=== PATIENT | female | born 1990 | race African-American/Black ===

== ENCOUNTER 2018-06-22 21:56 | Emergency (ER) | payer SELFPAY ==
[2018-06-22 23:07] LABS: Pregnancy Test - Urine (BHCG) Negative (Negative); Pregu Control Background? CLEAR/WHITE (CLR/WHITE); Pregu Control Bar Appear? YES (CONTROL BAR)
[2018-06-22 23:08] LABS: Bilirubin Negative (Negative); Blood, Urine Large (Negative); Clarity CLOUDY (Clear); Glucose, Urine (Dipstick) Negative (Negative); Leukocyte Negative (Negative); Nitrite Negative (Negative); Protein, Urine (Dipstick) Trace mg/dL (Neg-Trace); Specific Gravity, Urine 1.029 (1.002-1.036); pH, Urine 5.5 (5.0-9.0)
[2018-06-22 23:09] LABS: Specific Gravity 1.029 (1.002-1.036)
[2018-06-22 23:10] LABS: Bacteria/HPF None Seen HPF (None Seen); Hyaline Casts/LPF 0-3 HYALINE CAST LPF (0-3 Hyaline); Pathc Cast-AUWi Flag 0.72 (0-2.49); RBC/HPF GREATER THAN 50-TNTC HPF (0-3); Squamous Epithelial 0-3 HPF (0-3)
[2018-06-25 20:35] LABS: Chlamydia by PCR Not Detected (NotDetected); GC by PCR Not Detected (NotDetected)
== END 2018-06-23 00:11 | disposition home or self-care (01) ==
LOC: ERS 21:56
DX: N93.9 Abnormal uterine and vaginal bleeding, unspecified (principal); B37.3 Candidiasis of vulva and vagina
CPT/HCPCS: 81003; 81015; 81025; 87480; 87491; 87510; 87591; 87660; 99284

== ENCOUNTER 2018-12-14 23:05 | Emergency (ER) | payer OTHER, SELFPAY ==
[2018-12-14] MEDS ORDERED: Ondansetron PF 4 MG/2 ML Vial ONE (23:29)
[2018-12-14 23:59] LABS: #Basophils 0.2 thou/uL (0.0-0.2); #Eosinphils 0.1 thou/uL (0.0-0.7); #Lymphocytes 1.8 thou/uL (1.20-3.40); #Monocytes 0.4 thou/uL (0.11-0.59); %Basophils 2.4 % (0.0-1.0); %Eosinophils 1.1 % (0.0-10.0); %Lymphocytes 28.1 % (21.0-51.0); %Monocytes 6.6 % (0.0-10.0); %Neutrophils 61.9 % (42.0-75.0); Hemoglobin 13.5 g/dL (12.0-16.0); Mean Corpuscular HGB CONC 34.4 g/dL (32.0-36.0); Mean Corpuscular Hemoglobin 30.9 pg (27.0-31.0); Mean Corpuscular Volume 89.9 fL (78.0-98.0); Platelet Count 230 thou/uL (130-400); Red Blood Cell (RBC) Count 4.37 mill/uL (4.20-5.40); White Blood Cell (WBC) Count 6.4 thou/uL (4.8-10.8)
[2018-12-15 00:13] LABS: ALT (SGPT) 36 U/L (8-55); AST (SGOT) 30 U/L (5-34); Albumin 4.3 g/dL (3.5-5.0); Alkaline Phosphatase 81 U/L (40-150); Anion Gap 15 mmol/L (10-20); BUN (Urea Nitrogen) 7 mg/dL (7.0-18.7); Bilirubin, Total 0.8 mg/dL (0.2-1.2); Calc. Creatinine Clearance 0 mL/min (70-130); Carbon Dioxide 18 mmol/L (22-29); Chloride 107 mmol/L (98-107); Estimated GFR-MDRD Greater than 90; Globulin 3.4 g/dL (2.4-3.5); Glucose 122 mg/dL (70-105); Potassium 3.2 mmol/L (3.5-5.1); Protein, Total 7.7 g/dL (6.0-8.3); Sodium 137 mmol/L (136-145)
[2018-12-15 00:26] LABS: Bilirubin Negative (Negative); Blood, Urine Negative (Negative); Clarity Turbid (Clear); Glucose, Urine (Dipstick) Normal (Negative); Leukocyte 25 Leu/uL (Negative); Nitrite Negative (Negative); Protein, Urine (Dipstick) 50 mg/dL (Neg-Trace); Urobilinogen 6 mg/dL (Less than 2)
[2018-12-15 00:28] LABS: Bacteria/HPF 1+ HPF (None Seen)
== END 2018-12-15 01:30 | disposition home or self-care (01) ==
LOC: ERS 23:05
DX: O21.9 Vomiting of pregnancy, unspecified (principal); O99.281 Endocrine, nutritional and metabolic diseases complicating pregnancy, first trimester; E87.6 Hypokalemia; Z3A.12 12 weeks gestation of pregnancy
CPT/HCPCS: 80053; 81003; 81015; 85025; 96361; 96374; J2405

== ENCOUNTER 2018-12-18 13:39 | Inpatient (IN) | payer OTHER ==
[2018-12-18] MEDS ORDERED: Promethazine HCl 25 MG/ML VIAL ONE (14:47)
[2018-12-18 14:53] LABS: #Basophils 0.1 thou/uL (0.0-0.2); #Eosinphils 0.1 thou/uL (0.0-0.7); #Lymphocytes 1.6 thou/uL (1.20-3.40); #Monocytes 0.4 thou/uL (0.11-0.59); #Neutrophils 2.9 thou/uL (1.40-6.50); %Basophils 1.2 % (0.0-1.0); %Eosinophils 1.2 % (0.0-10.0); %Lymphocytes 31.6 % (21.0-51.0); Hemoglobin 14.1 g/dL (12.0-16.0); Mean Corpuscular HGB CONC 34.7 g/dL (32.0-36.0); Mean Corpuscular Hemoglobin 31.4 pg (27.0-31.0); Mean Corpuscular Volume 90.6 fL (78.0-98.0); Mean Platelet Volume 8.3 fL (7.4-10.4); Platelet Count 214 thou/uL (130-400); RBC Distribution Width 11.9 % (11.5-14.5); Red Blood Cell (RBC) Count 4.47 mill/uL (4.20-5.40)
[2018-12-18 15:10] LABS: ALT (SGPT) 67 U/L (8-55); AST (SGOT) 37 U/L (5-34); Albumin 4.5 g/dL (3.5-5.0); Alkaline Phosphatase 125 U/L (40-150); Anion Gap 19 mmol/L (10-20); BUN (Urea Nitrogen) 7 mg/dL (7.0-18.7); Calc. Creatinine Clearance 0 mL/min (70-130); Calcium 10.2 mg/dL (7.8-10.44); Carbon Dioxide 17 mmol/L (22-29); Chloride 108 mmol/L (98-107); Estimated GFR-MDRD Greater than 90; Globulin 3.2 g/dL (2.4-3.5); Glucose 72 mg/dL (70-105); Potassium 3.8 mmol/L (3.5-5.1); Protein, Total 7.7 g/dL (6.0-8.3); Sodium 140 mmol/L (136-145)
[2018-12-18 18:37] VITALS: BMI 32.4
[2018-12-18] MEDS ORDERED: Acetaminophen 500 MG TAB PO PRN (18:59)
[2018-12-18] MEDS ORDERED: Sodium Chloride 0.9% 10 ML ONE (19:49)
[2018-12-18] MEDS: Lactated Ringer's 1,000 ML IV SCH (19:59)
[2018-12-18] MEDS: Metoclopramide HCl 10 MG/2 ML VIAL IVP SCH (22:01)
[2018-12-18] MEDS: diphenhydrAMINE 50 MG/ML VIAL IM/IV SCH (22:08)
[2018-12-18] MEDS: Ondansetron PF 4 MG/2 ML Vial IVP SCH (23:57)
--- NOTE | 2018-12-19 01:26 | HP ---
CHIEF COMPLAINT: Nausea and vomiting in . HISTORY OF PRESENT ILLNESS: The patient is a 28-year-old, G5, P0 female with an intrauterine at 12 weeks gestation, who is reporting a 1-week history of persistent nausea and vomiting. The patient has had 2 visits to the emergency room for treatment and care with failure to outpatient management. The patient reports that she has been on Zofran at home and takes that as prescribed. The patient reports she vomits more than 10 times a day and is unable to keep any fluids or food down. 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 Discussing her case with her primary OB, Dr. Paramjit De Dios, it is reported that she had a hysteroscopic removal of a septum. The patient denies fever. She denies chest pain, shortness of breath, or cough. She has nausea and vomiting per HPI. Reports constipation and states she has not had a bowel movement for about a week now. The patient denies any new rashes, hip problems, knee problems, muscle weakness, vaginal bleeding, or urinary urgency. PAST MEDICAL HISTORY: Negative. PAST SURGICAL HISTORY: Hysteroscopic removal of uterine septum. PSYCHIATRIC HISTORY: Negative. SOCIAL HISTORY: Denies drug, alcohol, or tobacco use. ALLERGIES: NO KNOWN DRUG ALLERGIES. OB HISTORY: Four first trimester losses. RECORDS ANALYSIS MANAGER HISTORY: History of uterine septum, status post removal. CURRENT MEDICATIONS: Zofran 4 mg to be taken for nausea and vomiting. REVIEW OF SYSTEMS: Per HPI. PHYSICAL EXAMINATION: VITAL SIGNS: Blood pressure 109/57, temperature 99.3, pulse of 79, respiratory rate of 20. GENERAL: At the time of my evaluation, the patient appears to be a bit uncomfortable and nauseous, but had no vomiting since the waiting room. She is alert, oriented, cooperative, and pleasant to interact with. HEAD: Normocephalic, atraumatic. LUNGS: Clear to auscultation bilaterally. HEART: Has regular rate and rhythm. ABDOMEN: Soft. EXTREMITIES: Nontender, nonedematous. LABORATORY FINDINGS: Sodium 140, potassium 3.8, bicarb 17, creatinine 0.67, glucose 72, T bilirubin of 2, AST of 37, ALT of 67. White count of 5, hemoglobin of 14.1, hematocrit of 40.5, and platelets of 214,000. ASSESSMENT AND PLAN: The patient is a 28-year-old G5, P0 female with an intrauterine reported at 12 weeks gestation, here for persistent nausea and vomiting with failure of outpatient treatment. The patient has been admitted to observation, has been placed on scheduled Zofran, Reglan and Benadryl and been hydrated with IV fluids. Once her nausea and vomiting is under control, we will convert her over to p.o. medication in preparation for discharge home. We will Doppler to confirm viability of the , and ultrasound if unable to identify. The patient's primary OB, Dr. Paramjit De Dios has been notified and is aware of the patient's admission. He has asked us, The [employer] [facility] Hospitalist Team, to manage her inpatient care. Job ID: [id number]
[2018-12-19] MEDS: diphenhydrAMINE 50 MG/ML VIAL IM/IV SCH ×5 (01:36→17:12)
[2018-12-19] MEDS: Lactated Ringer's 1,000 ML IV SCH ×2 (04:05→12:01)
[2018-12-19] MEDS: Metoclopramide HCl 10 MG/2 ML VIAL IVP SCH ×2 (05:32→13:52)
[2018-12-19] MEDS: Ondansetron PF 4 MG/2 ML Vial IVP SCH ×2 (06:21→11:58)
--- NOTE | 2018-12-19 07:44 | PDOC.EVN ---
Event Note - Event Note Event Note: S: Patient feeling a little better this am. Was able to eat some mashed potatoes last night and tolerate. Denies VB or other concerns. O: AFVSS Gen - AAO, NAD Abd - soft, NTTP Ext - no edema A/P: 28 y/o at 12 weeks with hyperemesis. Discussed switching to oral medications but patient adamantly feels she is not ready. Will give breakfast and if tolerates, patient agrees to switch to oral medications after that. Continue to monitor.
--- NOTE | 2018-12-19 17:35 | PDOC.EVN ---
Event Note - Event Note Event Note: Pt feeling much better and is tolerating a diet now on scheduled iv reglan, zofran, benadryl. Will exchange mechanic to PO. If tolerating regimen will plan discharge for 12pm tomorrow.
[2018-12-19] MEDS ORDERED: diphenhydrAMINE 25 MG CAP PO SCH (18:00)
[2018-12-19] MEDS ORDERED: diphenhydrAMINE 12.5 MG/5 ML UDCUP PO SCH (18:30)
[2018-12-19] MEDS: Metoclopramide HCl 10 MG TAB PO SCH (21:25)
[2018-12-19] MEDS: pyridOXINE 50 MG (B6) TAB PO SCH (22:07)
[2018-12-19] MEDS: Ondansetron ODT 8 MG TAB SL SCH (22:08)
[2018-12-20] MEDS: diphenhydrAMINE 12.5 MG/5 ML UDCUP PO SCH ×2 (00:21→05:40)
[2018-12-20] MEDS: Metoclopramide HCl 10 MG TAB PO SCH (08:09)
--- NOTE | 2018-12-20 08:15 | DIS ---
DATE OF ADMISSION: 12/18/2018 DATE OF DISCHARGE: 12/20/2018 ADMITTING DIAGNOSES: 1. Intrauterine at 12 weeks. 2. Hyperemesis gravidarum. DISCHARGE DIAGNOSES: 1. Intrauterine at 12 weeks. 2. Hyperemesis gravidarum. PROCEDURES: None. CONSULTATIONS: None. HOSPITAL COURSE: The patient is a 28-year-old female with an intrauterine at approximately 12 weeks' gestation, who is presenting to the emergency room after persistent nausea and vomiting. The patient was seen previously in the emergency room and sent home with a prescription of Zofran that has not been tolerated. She reported that she has been vomiting more than 10 to 12 times in the last 24 hours and has been unable to keep any fluids or food down. The patient was admitted, placed on scheduled antiemetics. Initially, all IV medications after a day of antiemetics, the patient began having an appetite again. On hospital day 2, the patient's medications were switched to p.o. and the patient began tolerating an oral diet. This morning, the patient continues to feel well without vomiting or significant nausea. Vital signs this morning; blood pressure is 97/56, temperature 98.3, pulse of 63, respiratory rate of 20, and saturating 98% on room air. She is being discharged to home with Zofran 8 mg to be taken twice a day in the morning and at night, Reglan 10 mg to be taken 30 minutes before meals 3 times a day, Benadryl 12.5 mg every 4 hours or 25 mg every 8 hours. She also has vitamin B6 of 25 mg twice a day. The patient has been counseled to continue these medications for the next several days. If she continues to tolerate diet well, she can reduce her Zofran to 4 mg twice a day and see if she continues to do well. The patient has been counseled to follow up with her primary OB, Dr. Anne De Dios in the next week. Fetus through her stay has had normal Dopplers. Job ID: [id number]
[2018-12-20 08:29] VITALS: BP 91/65; TEMP 98.6
[2018-12-20] MEDS: pyridOXINE 50 MG (B6) TAB PO SCH (08:41)
[2018-12-20] MEDS: Ondansetron ODT 8 MG TAB SL SCH (08:41)
== END 2018-12-20 10:10 | disposition home or self-care (01) | DRG 833 ==
LOC: ERS 13:39 → OBSVTOIN 16:19 → 3SW 16:19
PROVIDERS: ADMIT Obstetrics & Gynecology; ATTEND Obstetrics & Gynecology
DX: O21.0 Mild hyperemesis gravidarum (principal); Z3A.12 12 weeks gestation of pregnancy
CPT/HCPCS: 36415; 80053; 85025; J1200; J2405; J2550; J2765; J8597; Q0163

== ENCOUNTER 2019-03-27 05:11 | Day surgery (SDC) | payer OTHER ==
[2019-03-27 05:57] VITALS: BMI 33.5
[2019-03-27 07:08] LABS: Bacteria/HPF None Seen HPF (None Seen); Bilirubin Negative (Negative); Blood, Urine Negative (Negative); Clarity Clear (Clear); Glucose, Urine (Dipstick) Normal (Negative); Leukocyte Negative Leu/uL (Negative); Nitrite Negative (Negative); Protein, Urine (Dipstick) Negative (Neg-Trace); RBC/HPF 0-3 HPF (0-3); Urobilinogen Normal mg/dL (Less than 2); WBC/HPF 0-3 HPF (0-3)
[2019-03-27 07:13] VITALS: BP 102/74; TEMP 98.1
[2019-03-27 07:27] LABS: Hemoglobin 11.5 g/dL (12.0-16.0); Mean Corpuscular HGB CONC 33.4 g/dL (32.0-36.0); Mean Corpuscular Hemoglobin 31.6 pg (27.0-31.0); Mean Corpuscular Volume 94.5 fL (78.0-98.0); Mean Platelet Volume 7.9 fL (7.4-10.4); Platelet Count 197 thou/uL (130-400); RBC Distribution Width 11.6 % (11.5-14.5); Red Blood Cell (RBC) Count 3.65 mill/uL (4.20-5.40)
[2019-03-27 07:49] LABS: ALT (SGPT) Less than 7 U/L (8-55); AST (SGOT) 8 U/L (5-34); Albumin 3.2 g/dL (3.5-5.0); Alkaline Phosphatase 87 U/L (40-110); Anion Gap 7 mmol/L (10-20); BUN (Urea Nitrogen) 7 mg/dL (7.0-18.7); Bilirubin, Total Less than 0.2 mg/dL (0.2-1.2); Calc. Creatinine Clearance 199 mL/min (70-130); Calcium 8.9 mg/dL (7.8-10.44); Carbon Dioxide 23 mmol/L (22-29); Chloride 111 mmol/L (98-107); Estimated GFR-MDRD Greater than 90; Globulin 3.1 g/dL (2.4-3.5); Glucose 72 mg/dL (70-105); Potassium 4.3 mmol/L (3.5-5.1); Protein, Total 6.3 g/dL (6.0-8.3); Sodium 137 mmol/L (136-145)
--- NOTE | 2019-03-27 08:30 | PDOC.EVN ---
Event Note - Event Note Event Note: OBGYN Bi Data Architect 0830 Triage note: I have reviewed the case with Dr Suggs from last shift. Labs are wnl. I was in the room during the RUQ sono: no evidence GB stones (distended gallbladder with no evidence obstructuion or GB wall thickening). No clinical evidence of PTL. My assessment: at 26 weeks 5 days with nonspecific RUQ pain and poss LBP. No evidence CVAT , or pyelo clinically. Afebrile. No pinon's sign on sono and no evidence cholelithiasis. HX Metroplasty in past Plan: OK for outpatient followup.
--- NOTE | 2019-03-27 10:09 | ULT ---
RIGHT UPPER QUADRANT ULTRASOUND: INDICATION: History of gallstones, 26-week , and upper abdominal pain. COMPARISON: None. FINDINGS: The right kidney demonstrates mild hydronephrosis and measures 11.3 x 4.4 x 5.2 cm. The liver measur es 16.7 cm. No focal hepatic lesion is evident. The visualized gallbladder appeared within normal l imits, except for some mild shadowing stones. No gallbladder wall thickening is evident. No sonogra phic Amado's sign was reported. The common bile duct measured 2.1 mm. Visualized aspects of the pa ncreas are unremarkable-appearing. IMPRESSION: 1. Mild right hydronephrosis. 2. Cholelithiasis without sonographic evidence of acute cholecystitis. POS: TPC
--- NOTE | 2019-03-27 20:08 | SS ---
DATE OF ADMISSION: 03/27/2019 DATE OF DISCHARGE: 03/27/2019 REGULAR PHYSICIAN: Dr. Paramjit De Dios. EVALUATING PHYSICIAN: Otis Suggs MD CHIEF COMPLAINT: Right flank pain, upper abdominal pain. HISTORY OF PRESENT ILLNESS: Ms. Fox is a 28-year-old black G5, P0 with an estimated date of confinement of 06/28/2019, who presents complaining of acute onset of right flank pain with radiation to her upper right abdomen associated with nausea and vomiting. She denies vaginal bleeding or ruptured membranes. Her care has been with Dr. De Dios and has been reportedly uncomplicated. PAST OBSTETRICAL HISTORY: Includes 4 early miscarriages, none of them requiring D and C. PAST MEDICAL HISTORY: None. PAST SURGICAL HISTORY: Reunification of bicornuate uterus. CURRENT MEDICATIONS: None. ALLERGIES: NO KNOWN ALLERGIES. SOCIAL HISTORY: Denies tobacco, alcohol, or drug use. FAMILY HISTORY: Unremarkable. REVIEW OF SYSTEMS: Positive for nausea, vomiting, flank pain, and abdominal pain. Negative for fever, chills, bleeding or ruptured membranes. PHYSICAL EXAMINATION: VITAL SIGNS: Blood pressure 101/65, pulse 74, 99% saturated on room air. GENERAL: She appears uncomfortable, but she is in no acute distress. Her fundus is nontender. She reports discomfort to palpation of both her right flank and her right upper abdomen. There was no guarding or rebound. PELVIC: Deferred. heart rate tracing is stable. There are no decelerations. No uterine activity seen. ASSESSMENT: 1. 26 and 5/7th week intrauterine . 2. Right flank pain. 3. Right upper quadrant pain. PLAN: Laboratories have been obtained. These are pending. An abdominal ultrasound has also been ordered. I will be checking it with Dr. Wilson at shift change and relaying these findings to him at that time. Job ID: [id number]
== END 2019-03-27 08:54 | disposition home health service (06) ==
LOC: L&D/OP 05:11 → EDSTATUS 05:12 → L&D/OP 08:54
PROVIDERS: ATTEND Obstetrics & Gynecology
DX: O99.89 Other specified diseases and conditions complicating pregnancy, childbirth and the puerperium (principal); N13.30 Unspecified hydronephrosis; O99.612 Diseases of the digestive system complicating pregnancy, second trimester; K80.20 Calculus of gallbladder without cholecystitis without obstruction; O09.292 Supervision of pregnancy with other poor reproductive or obstetric history, second trimester; Z3A.26 26 weeks gestation of pregnancy
CPT/HCPCS: 36415; 76705; 80053; 81003; 85027; 99283

== ENCOUNTER 2019-06-19 04:58 | Inpatient (IN) | payer OTHER ==
[2019-06-19] MEDS ORDERED: CEFAZOLIN 2 GM in Premix Bag 1 BAG IVPB SCH (05:21)
[2019-06-19] MEDS ORDERED: Promethazine HCl 25 MG/ML VIAL IM PRN ×2 (05:21→08:55)
[2019-06-19] MEDS ORDERED: Ondansetron PF 4 MG/2 ML Vial IVP PRN ×2 (05:21→08:55)
[2019-06-19] MEDS ORDERED: Lactated Ringer's 1,000 ML IV SCH (05:21)
[2019-06-19] MEDS ORDERED: Bicitra 30 ML UDCUP PO SCH (05:21)
[2019-06-19] MEDS ORDERED: hydrALAZINE 20 MG/ML VIAL SLOW IVP PRN ×2 (05:21→10:55)
[2019-06-19 05:43] VITALS: BMI 34.0
[2019-06-19 06:10] LABS: Hemoglobin 11.8 g/dL (12.0-16.0); Mean Corpuscular HGB CONC 32.7 g/dL (32.0-36.0); Mean Corpuscular Hemoglobin 30.2 pg (27.0-31.0); Mean Corpuscular Volume 92.5 fL (78.0-98.0); Mean Platelet Volume 8.4 fL (7.4-10.4); Platelet Count 220 thou/uL (130-400); RBC Distribution Width 11.3 % (11.5-14.5); Red Blood Cell (RBC) Count 3.89 mill/uL (4.20-5.40); White Blood Cell (WBC) Count 8.3 thou/uL (4.8-10.8)
[2019-06-19] MEDS ORDERED: FLU VACC QS2019-20(6MOS UP)/PF 60 MCG/0.5 ML SYRINGE IM ONE (06:15)
[2019-06-19 06:49] LABS: HBSAg Index 0.15 S/CO (0-0.99); Hep B Surf Ag Non-Reactive S/CO (NonReactive); Syphilis Antibody Nonreactive (Nonreactive); Syphilis Antibody Index 0.04 S/CO (<1.00 Non-Reactive)
[2019-06-19] MEDS ORDERED: PHENYLEPHRINE-NS 100 MCG/ML 10 ML SYRINGE ONE (07:19)
[2019-06-19] MEDS ORDERED: MORPHINE 5 MG/10 ML PF VIAL ONE (07:19)
[2019-06-19] MEDS ORDERED: Oxytocin 10 UNITS/ML VIAL ONE (07:19)
[2019-06-19] MEDS ORDERED: Methylergonovine 0.2 MG/ML VIAL ONE (08:01)
[2019-06-19] MEDS ORDERED: Misoprostol 200 MCG TAB ONE (08:13)
[2019-06-19] MEDS ORDERED: Promethazine HCl 25 MG SUPP PR PRN (08:55)
[2019-06-19] MEDS ORDERED: Naloxone HCl 0.4 mg/ml Vial IV PRN (08:55)
[2019-06-19] MEDS ORDERED: Naloxone HCl 0.4 mg/ml Vial IVP PRN ×2 (08:55)
[2019-06-19] MEDS ORDERED: HYDROmorphone 2 MG/ML VIAL SLOW IVP PRN (08:55)
[2019-06-19] MEDS ORDERED: Ondansetron HCl/PF 4 MG/2 ML Vial IVP PRN (08:55)
[2019-06-19] MEDS ORDERED: Ketorolac Tromethamine 30 MG/ML VIAL IVP PRN (08:55)
[2019-06-19] MEDS ORDERED: Meperidine HCl/PF 25 MG/ML VIAL SLOW IVP PRN (08:55)
[2019-06-19] MEDS ORDERED: diphenhydrAMINE 50 MG/ML VIAL IVP PRN (08:55)
[2019-06-19] MEDS ORDERED: L&D-Morphine 4 MG/ML VIAL SLOW IVP PRN (08:55)
[2019-06-19] MEDS ORDERED: Communication Order-Pharmacy FS SCH (09:00)
[2019-06-19] MEDS ORDERED: Ketorolac Tromethamine 30 MG/ML VIAL IVP SCH (09:00)
[2019-06-19] MEDS ORDERED: NS / Oxytocin 40 units/1000ml 1,000 ML ONE ×2 (09:07→10:25)
--- NOTE | 2019-06-19 10:41 | OP ---
DATE OF PROCEDURE: 06/19/2019 ATTENDING SURGEON: Anne De Dios MD RESIDENT SURGEON: Shakira Acosta DO PREOPERATIVE DIAGNOSES: 1. Term intrauterine at 39 weeks. 2. History of uterine anomaly with septum removal. 3. No trial of labor. POSTOPERATIVE DIAGNOSES: 1. Term intrauterine at 39 weeks. 2. History of uterine anomaly with septum removal. 3. No trial of labor. PROCEDURE PERFORMED: Primary low-transverse section. ANESTHESIA: Spinal catheterization. FINDINGS: 1. Bicornuate uterus with history of septal removal. 2. Vigorous male infant, 5 pounds 14 ounces. Apgars 8 and 9. 3. Normal fallopian tubes and ovaries. COMPLICATIONS: None. SPECIMENS REMOVED: Cord blood. ESTIMATED BLOOD LOSS: 800 to 1000 mL. HISTORY AND INDICATIONS: Ms. Rikki Fox is a pleasant 28-year-old black female, 5, para 0-0-4-0, who is followed in my clinic for obstetric care. The patient has a history of multiple miscarriages. She underwent diagnostic surgery and a bicornuate uterus was identified. Surgical removal of a uterine septum was performed. Her gynecologic surgeon put in the operative note and told the patient that she was not a trial of labor candidate. This was confirmed by the operative report medical record. For that reason, Ms. Fox is scheduled for primary this morning. Surgical disclosures were then signed and placed in the chart. She has been given the opportunity to ask any questions or stated any concerns and these have been answered to her satisfaction. DESCRIPTION OF PROCEDURE: After consent and counseling, the patient was taken to the operating room and adequate level anesthesia was obtained via spinal catheterization. The patient was then prepped and draped in usual sterile fashion for abdominal surgery. A Alvares was placed in the bladder, which was noted to be draining clear urine. Attention was then turned to performing the primary low-transverse section. Team time-out was performed per protocol. A Pfannenstiel incision was made and carried sharply to the fascia, which was also sharply incised. The rectus muscles were identified and retracted laterally. The abdominal peritoneal cavity was entered with usual safeguards carried out. A retractor was placed and a bladder flap was created on the vesicouterine peritoneum. A bladder blade was then placed. A low-transverse incision was made on the well-developed lower uterine segment. Following the low-transverse incision, brisk bleeding was encountered secondary to a large venous sinus and an akila-fundal placenta. Amniotomy was performed and clear amniotic fluid was visualized. The infant was noted to be vertex presentation in the occiput anterior position high in the pelvis. The head was delivered with the assistance of a vacuum. The head was carefully delivered in an atraumatic fashion. Shoulders and body were then delivered in an atraumatic fashion. The cord was doubly clamped and cut. The infant was handed to the Neonatology Team in attendance for the delivery. The was a vigorous viable male weighing 5 pounds 14 ounces with Apgars of 8 and 9 obtained at one and five minutes respectively. Cord blood was obtained. The placenta was manually removed from the uterus. The uterine cavity was cleared of any remaining clot and fluid. The uterus was noted to be have a Mullerian anomaly in the form of a bicornuate uterus. The fundus of the uterus was extremely thin secondary to the patient's history of septum removal. The low-transverse incision was closed with a running locking ligature of #1 chromic. A second imbricating layer was placed to facilitate strengthened hemostasis. The vesicouterine peritoneum was then closed with a running ligature of 2-0 Monocryl. The uterus was noted to be extremely hypotonic. Vigorous manual massage was performed. The patient was also given a dose of Methergine intraoperatively. The posterior cul-de-sac and gutters were cleared of clot and fluid. Slowly, the patient did gain uterine tone and was hemodynamically stable. The fallopian tubes and ovaries were carefully inspected and noted to be normal. The uterus was returned to the abdomen. Laps, sponge, and needle counts were correct. The peritoneum was closed with a running ligature of 2-0 Vicryl suture. The rectus muscles were reapproximated in the midline with interrupted ligatures of 2-0 Vicryl suture. The fascia was then closed with 2 ligatures of 0 Vicryl suture, which were tied in the midline. Good fascial integrity was appreciated. The subcutaneous tissue was closed with interrupted ligatures of 2-0 plain. The skin was closed with subcuticular stitch of 4-0 Monocryl and dressed with Dermabond. Pressure dressing and ice packs were subsequently placed. Lap, sponge, and needle counts were correct x3. Estimated blood loss during the surgical procedure was 800 to 1000 mL; QBL was pending. The patient was given 800 mcg of Cytotec DE at the conclusion of the procedure. The patient was awakened and taken to the recovery room in good condition. Immediately following the surgery, the patient and family were made aware of the surgical procedure and operative findings. Questions were answered to their satisfaction. Job ID: [id number]
[2019-06-19] MEDS ORDERED: Adacel (T-DAP) 0.5 ML SYRINGE IM ONE (10:55)
[2019-06-19] MEDS ORDERED: Meperidine HCl/PF 25 MG/ML VIAL IM PRN (10:55)
[2019-06-19] MEDS ORDERED: Lanolin Ointment 7 GM TUBE TOP PRN (10:55)
[2019-06-19] MEDS ORDERED: Misoprostol 200 MCG TAB PR PRN (10:55)
[2019-06-19] MEDS ORDERED: HYDROcodone/Acetaminophen 5/325 mg Tablet PO PRN (10:55)
[2019-06-19] MEDS ORDERED: Zolpidem Tartrate 5 MG TAB PO PRN (10:55)
[2019-06-19] MEDS ORDERED: Bisacodyl 10 MG SUPP PR PRN (10:55)
[2019-06-19] MEDS ORDERED: Acetaminophen 325 MG TAB PO PRN (10:55)
[2019-06-19] MEDS ORDERED: NS / Oxytocin 40 units/1000ml 1,000 ML IV SCH (11:00)
[2019-06-19 11:41] LABS: Hemoglobin 5.8 g/dL (12.0-16.0); Platelet Count 91 thou/uL (130-400)
[2019-06-19 12:38] LABS: Platelet Count 155 thou/uL (130-400)
[2019-06-19 12:52] LABS: Fibrinogen 393 mg/dL (253-463)
[2019-06-19 12:53] LABS: INR-International Normal Ratio 1.1; PTT 27.7 SEC (22.9-36.1); Prothrombin Time 14.1 SEC (12.0-14.7)
[2019-06-19 13:30] LABS: D-Dimer Test 8.62 *mcg/mL (0.27-0.43)
[2019-06-19 13:37] LABS: FSP-Qualitative ABNORMAL (Normal); FSP-Semiquantitative >=20 & <40 mcg/mL (Less than 5)
[2019-06-19 13:51] LABS: Hemoglobin 9.6 g/dL (12.0-16.0)
[2019-06-19] MEDS: Ibuprofen 800 MG TAB PO SCH (15:34)
[2019-06-20] MEDS: Ferrous Sulfate 325 MG TAB PO SCH ×3 (03:20→21:02)
[2019-06-20] MEDS: Ibuprofen 800 MG TAB PO SCH ×4 (03:20→21:02)
[2019-06-20] MEDS: HYDROcodone/Acetaminophen 5/325 mg Tablet PO PRN ×4 (04:28→21:03)
[2019-06-20] MEDS: Simethicone Chewable 80 MG TAB PO PRN ×2 (04:30→12:01)
[2019-06-20 06:47] LABS: Mean Corpuscular HGB CONC 34.1 g/dL (32.0-36.0); Mean Corpuscular Volume 93.8 fL (78.0-98.0); Mean Platelet Volume 8.4 fL (7.4-10.4); Platelet Count 146 thou/uL (130-400); RBC Distribution Width 11.4 % (11.5-14.5)
[2019-06-20] MEDS: Prenatal Vitamin 1 TAB PO SCH (08:56)
[2019-06-21] MEDS: Ibuprofen 800 MG TAB PO SCH (05:24)
[2019-06-21] MEDS: HYDROcodone/Acetaminophen 5/325 mg Tablet PO PRN (05:25)
[2019-06-21 08:40] VITALS: BP 99/60; TEMP 98.9
[2019-06-21] MEDS: Prenatal Vitamin 1 TAB PO SCH (08:43)
[2019-06-21] MEDS: Ferrous Sulfate 325 MG TAB PO SCH (08:43)
[2019-06-21] MEDS: Simethicone Chewable 80 MG TAB PO PRN (08:43)
--- NOTE | 2019-06-23 01:52 | PQF ---
COCO FREEMAN L JUSTIN MD [id number] CLINICAL DOCUMENTATION CLARIFICATION FORM: POST DISCHARGE Addendum to original discharge summary date: ____ Late entry note date: __ DATE: 06/23/2019 ATTN:Yokasta BLAIR MD Please exercise your independent, professional judgment in responding to the clarification form. Clinical indicators are provided on the bottom of this form for your review Please check appropriate box(s): [ ] Acute blood loss anemia [ x ] Post-op anemia related to acute blood loss [ ] Chronic Anemia due to Blood loss [ ] Other diagnosis [ ] Unable to determine In addition, please specify: Present on Admission (POA): [x ] Yes [ ] No [ ] Unable to determine For continuity of documentation, please document condition throughout progress notes and discharge summary. Thank You. CLINICAL INDICATORS - SIGNS / SYMPTOMS / LABS HGB 11.8 on 06/19 , 5.8 on 06/19 , 9.0 on 06/20 - Documented in Laboratory HCT 36.0 on 06/19 , 17.6 on 06/19, 26.3 on 06/20 - Documented in Laboratory BP 103/59 on 06/19, 89/52 on 06/20 and 96/54 on 06/21 - Documented in Vital Signs Estimated blood loss 800 to 1000 ml - Documented in Operative report on 06/19 by Yokasta BLAIR MD RISK FACTORS Patient with Bicornuate uterus - Documented in Operative report on 06/19 by Yokasta BLAIR MD Primary C section - Documented in Operative report on 06/19 by Yokasta BLAIR MD No post Complication - Documented in Operative report on 06/19 by Yokasta BLAIR MD TREATMENTS: Ferrous sulfate 325 mg - Documented in Medication report RBC transfusion 1 unit - Documented in Blood bank (This form is maintained as a part of the permanent medical record) 2014 [employer]. All Rights Reserved [employer] [email or web address]
== END 2019-06-21 12:30 | disposition home or self-care (01) | DRG 787 ==
LOC: L&D 04:58 → 3SW 15:22
PROVIDERS: ADMIT Obstetrics & Gynecology; ATTEND Obstetrics & Gynecology
PROC: 10D00Z1 Extraction of Products of Conception, Low, Open Approach (ICD-10-PCS; principal; 2019-06-19)
PROC: 30233N1 Transfusion of Nonautologous Red Blood Cells into Peripheral Vein, Percutaneous Approach (ICD-10-PCS; 2019-06-20)
DX: O34.03 Maternal care for unspecified congenital malformation of uterus, third trimester (principal); D62 Acute posthemorrhagic anemia; Q51.3 Bicornate uterus; Z3A.39 39 weeks gestation of pregnancy; Z37.0 Single live birth; O90.81 Anemia of the puerperium
CPT/HCPCS: 36415; 36430; 51702; 85027; 85049; 85300; 85362; 85379; 85384; 85610; 85730; 86780; 86850; 86900; 86901; 87340; J0690; J1200; J2210; J2274; J2590; P9016

== ENCOUNTER 2019-11-19 10:33 | Emergency (ER) | payer OTHER | END 2019-11-19 11:03 | disposition home or self-care (01) | LOC: ERS 10:33 | DX: H60.91 Unspecified otitis externa, right ear (principal) | CPT/HCPCS: 99282 ==

== ENCOUNTER 2020-02-21 16:46 | Emergency (ER) | payer OTHER ==
[2020-02-21] MEDS ORDERED: Tobramycin/dex OPTH 2.5 ML BOT ONE (17:05)
[2020-02-21] MEDS ORDERED: Ibuprofen 200 MG TAB ONE (17:05)
== END 2020-02-21 17:21 | disposition home or self-care (01) ==
LOC: ERS 16:46
DX: S05.01XA Injury of conjunctiva and corneal abrasion without foreign body, right eye, initial encounter (principal); W50.0XXA Accidental hit or strike by another person, initial encounter
CPT/HCPCS: 99283

== ENCOUNTER 2020-04-25 16:00 | Emergency (ER) | payer OTHER ==
[2020-04-26 00:22] LABS: SARS-CoV-2 MS2 Positive; SARS-CoV-2 N Gene Negative; SARS-CoV-2 S Gene Negative; SARS-CoV-2 by NAA Not Detected (NotDetected); SARS-CoV-2 orf1ab Negative
== END 2020-04-25 18:02 | disposition home or self-care (01) ==
LOC: ERS 16:00
DX: Z20.828 Contact with and (suspected) exposure to other viral communicable diseases (principal)
CPT/HCPCS: 87635; 99283; U0003

== ENCOUNTER 2022-06-16 13:32 | Emergency (ER) | payer OTHER ==
[2022-06-16] MEDS ORDERED: Ibuprofen 200 MG TAB ONE (14:33)
== END 2022-06-16 14:44 | disposition home or self-care (01) ==
LOC: ERS 13:32
DX: S93.401A Sprain of unspecified ligament of right ankle, initial encounter (principal); X50.1XXA Overexertion from prolonged static or awkward postures, initial encounter

== ENCOUNTER 2022-12-22 00:21 | Emergency (ER) | payer OTHER ==
[2022-12-22 01:10] LABS: #Basophils 0.1 thou/uL (0.0-0.2); #Eosinphils 0.2 thou/uL (0.0-0.7); #Monocytes 0.6 thou/uL (0.11-0.59); #Neutrophils 3.3 thou/uL (1.40-6.50); %Basophils 0.7 % (0.0-1.0); %Eosinophils 2.2 % (0.0-10.0); %Lymphocytes 55.5 % (21.0-51.0); %Monocytes 6.7 % (0.0-10.0); %Neutrophils 34.8 % (42.0-75.0); Hematocrit 38.1 % (36.0-47.0); Hemoglobin 12.2 g/dL (12.0-16.0); Mean Corpuscular Hemoglobin 29.1 pg (27.0-31.0); Mean Corpuscular Volume 90.9 fl (78.0-98.0); Mean Platelet Volume 9.7 fL (7.4-10.4); Platelet Count 293 10x3/uL (130-400); RBC Distribution Width 12.7 % (11.5-14.5); Red Blood Cell (RBC) Count 4.19 mill/uL (4.20-5.40); White Blood Cell (WBC) Count 9.4 10x3/uL (4.8-10.8)
[2022-12-22] MEDS ORDERED: Ketorolac Tromethamine 30 MG/ML VIAL ONE (01:25)
[2022-12-22 01:27] LABS: BHCG - Serum Negative (NEGATIVE); Pregs Control Background? CLEAR/WHITE (CLR/WHITE); Pregs Control Bar Appear? YES (CONTROL BAR)
[2022-12-22 01:33] LABS: ALT (SGPT) 19 U/L (8-55); AST (SGOT) 16 U/L (5-34); Albumin 3.9 g/dL (3.5-5.0); Alkaline Phosphatase 98 U/L (40-110); Anion Gap 13 mmol/L (10-20); BUN (Urea Nitrogen) 17 mg/dL (7.0-18.7); Bilirubin, Total 0.2 mg/dL (0.2-1.2); Calc. Creatinine Clearance 0 mL/min (70-130); Calcium 9.2 mg/dL (7.8-10.44); Carbon Dioxide 19 mmol/L (22-29); Chloride 107 mmol/L (98-107); Estimated GFR 119; Globulin 3.3 g/dL (2.4-3.5); Glucose 81 mg/dL (70-105); Lipase 53 U/L (8-78); Potassium 3.9 mmol/L (3.5-5.1); Protein, Total 7.2 g/dL (6.0-8.3); Sodium 135 mmol/L (136-145)
[2022-12-22 01:36] LABS: Bacteria/HPF None Seen HPF (None Seen); Bilirubin Negative (Negative); Blood, Urine Negative (Negative); CAUTI Indications for Culture Pelvic or flank pain; Clarity Clear (Clear); Glucose, Urine (Dipstick) Normal (Negative); Ketone, Urine Negative (Negative); Leukocyte Negative Leu/uL (Negative); Nitrite Negative (Negative); Protein, Urine (Dipstick) Negative (Neg-Trace); RBC/HPF 0-3 HPF (0-3); Specific Gravity, Urine 1.029 (1.002-1.036); Squamous Epithelial 0-3 HPF (0-3); Urobilinogen Normal mg/dL (Less than 2); WBC/HPF 0-3 HPF (0-3)
[2022-12-22 01:38] LABS: Urine Culture Reflex No No
== END 2022-12-22 03:05 | disposition home or self-care (01) ==
LOC: ERS 00:21
DX: N83.8 Other noninflammatory disorders of ovary, fallopian tube and broad ligament (principal)
CPT/HCPCS: 36415; 76856; 80053; 81001; 83690; 84703; 85025; 96374; J1885

== ENCOUNTER 2023-12-19 14:13 | Emergency (ER) | payer OTHER ==
[2023-12-19] MEDS ORDERED: Dexamethasone 10 MG/ML VIAL ONE (14:55)
== END 2023-12-19 15:07 | disposition home or self-care (01) ==
LOC: ERS 14:13
DX: G56.01 Carpal tunnel syndrome, right upper limb (principal)
CPT/HCPCS: 99283; J1100